=== PATIENT | female | born 1970 | race Caucasian/White ===

== ENCOUNTER 2017-10-27 20:35 | Emergency (ER) | payer BC ==
[~2017-10-27] VITALS: Ht 170.2 cm; Wt 65.8 kg
[~2017-10-27 20:35] MED LIST: ALB18R INH; PRED20TA6 PO
--- NOTE | 2017-10-27 21:00 | ER Report ---
History and Physical Time Seen By MD: 20:59 Hx. 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 Seems to be improving but feels like she needs a breathing treatment due to ongoing shortness of breath. She has had more severe exacerbations in the past. No chest pain leg swelling or other concerns no fevers. REVIEW OF SYSTEMS: Respiratory: No cough, no hemoptysis Cardiovascular: No chest pain, no palpitations. Gastrointestinal: No vomiting, no abdominal pain. Musculoskeletal: No back pain. Allergies: Coded Allergies: Penicillins (Verified Allergy, Unknown, GI DISTRESS, 10/27/17) Home Meds Discontinued Reported Medications Albuterol Sulfate (VENTOLIN HFA) 18 Gm Inh, 1-2 PUFF INH 3-4XD Y for SHORTNESS OF BREATH, INH 05/08/15 Discontinued Scripts Prednisone (PREDNISONE) 20 Mg Tablet, 40 MG PO QDAY for 7 Days, TAB Prov:RALPH MATTHEW MD 05/08/15 Hx Smoking: Yes Smoking Status: Current: Every Day Smoker Hx Substance Use Disorder: No Hx Alcohol Use: No Constitutional Vital Sign - Last 24 Hours 10/27/17 10/27/17 10/27/17 20:40 21:22 21:22 Temp 98.1 Pulse 74 60 Resp 19 12 B/P (MAP) 135/95 Pulse Ox 97 98 O2 Delivery Room Air Room Air Physical Exam General Appearance: The patient is alert, has no immediate need for airway protection and no current signs of toxicity. Overall well-appearing Eyes: Pupils equal and round no injection. Respiratory: Chest is non tender, lungs are clear to auscultation. Cardiac: regular rate and rhythm no murmurs gallops or rubs Gastrointestinal: Abdomen is soft and non tender, no masses, bowel sounds normal. Musculoskeletal: Neck: Neck is supple and non tender. Extremities have full range of motion and are non tender. Skin: No rashes or lesions. No Edema DIFFERENTIAL DIAGNOSIS: After history and physical exam differential diagnosis was considered for allergic reaction, resolving COPD exacerbation mild follow- up wrist or infection early in course of illness no signs of acute coronary syndrome heart failure or other serious process Medical Decision Making ED Course/Re-evaluation ED Course Plan of care agreed-upon prior to orders placed Re-evaluation 10/27/2017 10:01:27 pm patient doing better no concerns or complaints feels better and ready for discharge Decision to Disposition Date: Oct 27, 2017 Decision to Disposition Time: 22:01 Depart Departure Latest Vital Signs Vital Signs Date Time Temp Pulse Resp B/P (MAP) Pulse Ox O2 Delivery O2 Flow Rate FiO2 10/27/17 21:22 98 Room Air 10/27/17 21:22 60 12 10/27/17 20:40 98.1 135/95 Impression: Primary Impression: Allergic reaction Additional Impression: Dyspnea Condition: Improved Disposition: HOME OR SELF-CARE Referrals: HANS FINLEY MD (PCP) New Scripts Albuterol Sulfate 90 Mcg/Act (PROAIR HFA 90 MCG/ACT) 8.5 Gm Hfa.aer.ad 1-2 PUFF IH 3-4XD for wheezing for 10 Days, #2 INHALER Use spacer as directed for better results Prov: AMY RAMOS MD 10/27/17 Patient Instructions: General Allergic Reaction (ED) Problem Qualifiers AMY RAMOS MD Oct 27, 2017 21:00
[2017-10-27] MEDS ORDERED: ALBUTEROL 2.5 MG/3 ML NEB NEB ONE (21:05)
[2017-10-27 22:01] VITALS: BP 126/85
[2017-10-27] MEDS ORDERED: ALBU8.5H IH (22:04)
== END 2017-10-27 22:08 | disposition home or self-care (01) ==
LOC: ER 20:46
DX: T78.40XA Allergy, unspecified, initial encounter (principal); R06.00 Dyspnea, unspecified
CPT/HCPCS: 94640; 99282; J7613